=== PATIENT | female | born 1955 | race Caucasian/White ===

== ENCOUNTER 2021-03-03 04:58 | Emergency (ER) | payer MEDICARE, MEDICAID ==
[~2021-03-03] VITALS: Ht 172.7 cm; Wt 57.0 kg
[~2021-03-03 04:58] MED LIST: ALBU8HFA PO; HYDR-4353 PO
[2021-03-03 05:08] VITALS: BP 185/107
[2021-03-03] MEDS ORDERED: PENI500T2 PO (05:40)
== END 2021-03-03 05:59 | disposition home or self-care (01) ==
LOC: ER 04:59
DX: K04.7 Periapical abscess without sinus (principal); S03 Dislocation and sprain of joints and ligaments of head; G89.29 Other chronic pain; Z79.2 Long term (current) use of antibiotics; Z79.899 Other long term (current) drug therapy; Z98.890 Other specified postprocedural states; Z87.81 Personal history of (healed) traumatic fracture; X58.XXXD Exposure to other specified factors, subsequent encounter
CPT/HCPCS: 99283

== ENCOUNTER 2023-08-25 10:02 | Inpatient (IN) | payer MEDICARE, MEDICAID ==
[~2023-08-25] VITALS: Ht 172.7 cm; Wt 80.9 kg
[2023-08-25] MEDS ORDERED: morphine 4 MG/ML inj SYRINge IV PRN (10:40)
[2023-08-25 11:33] LABS: BASOPHILS % (AUTO) 0.3 % (0-1); EOSINOPHILS % (AUTO) 0.1 % (0-6); HEMATOCRIT 40.2 % (35.0-45.0); HEMOGLOBIN 13.6 g/dl (12.0-16.0); LYMPHOCYTES # (AUTO) 1.1 X10'3 (1.1-4.8); LYMPHOCYTES % (AUTO) 13.1 % (21-51); MEAN CORPUSCULAR HEMOGLOBIN 32.1 PG (27.0-31.0); MEAN CORPUSCULAR HGB CONC 33.8 g/dL (33.0-36.5); MEAN PLATELET VOLUME 8.9 FL (7.4-10.4); MONOCYTES # (AUTO) 0.7 X10'3 (0-0.9); MONOCYTES % (AUTO) 8.3 % (2-12); NEUTROPHILS # (AUTO) 6.7 X10'3 (1.8-7.7); NEUTROPHILS % (AUTO) 78.2 % (42-75); PLATELET COUNT 199 X10'3 (140-440); RED BLOOD COUNT 4.23 X10'6 (4.20-5.60); RED CELL DISTRIBUTION WIDTH 13.6 % (11.5-14.5); WHITE BLOOD COUNT 8.6 X10'3 (4.5-11.0)
[2023-08-25 11:46] LABS: PROTHROMBIN TIME 10.3 SECONDS (9.0-12.0)
[2023-08-25 11:48] LABS: ALANINE AMINOTRANSFERASE 25 U/L (12-78); ALBUMIN/GLOBULIN RATIO 1.1 (1.1-1.5); ALKALINE PHOSPHATASE 61 IU/L (46-116); ANION GAP 11 (8-16); ASPARTATE AMINO TRANSFERASE 17 U/L (10-37); BILIRUBIN,TOTAL 0.5 MG/DL (0.1-1.0); BLOOD UREA NITROGEN 18 MG/DL (7-18); BUN/CREATININE RATIO 22.2 (10.0-20.0); CALCIUM 9.3 MG/DL (8.5-10.1); CHLORIDE 103 MMOL/L (99-107); CREATININE 0.81 MG/DL (0.40-0.90); GLUCOSE 120 MG/DL (70-104); POTASSIUM 3.8 MMOL/L (3.5-5.1); SODIUM 137 MMOL/L (135-145); TOTAL CARBON DIOXIDE 23.4 MMOL/L (24-32); TOTAL PROTEIN 7.8 G/DL (6.4-8.2); eCRCL 61 ML/MIN; eGFR 71 ML/MIN
[2023-08-25] MEDS ORDERED: magnesium 2GM in 50ml NS 50 ML IV PRN (12:45)
[2023-08-25] MEDS ORDERED: magnesium 4gm in 100ml NS 100 ML IV PRN (12:45)
[2023-08-25] MEDS ORDERED: morphine 2 MG/ML inj. syringe IV PRN (12:45)
[2023-08-25] MEDS ORDERED: acetaminophen 325mg tablet PO PRN ×2 (12:45)
[2023-08-25] MEDS ORDERED: potassium Cl 20 mEq SR tablet PO PRN ×2 (12:45)
[2023-08-25] MEDS ORDERED: ondansetron/PF 4mg/2ml inj IV PRN (12:45)
[2023-08-25] MEDS ORDERED: magnesium Cl slow-release 64mg tablet PO PRN (12:45)
[2023-08-25] MEDS ORDERED: HYDROcodone/acetaminophen 5mg/325mg tablet PO PRN (12:45)
[2023-08-25] MEDS ORDERED: potassium Cl 40MEQ/1/2NS 520ml 520 ML IV PRN (12:45)
[2023-08-25 13:13] LABS: BILIRUBIN,URINE NEGATIVE (Neg); CLARITY,URINE CLEAR (Clear); COLOR,URINE YELLOW (Yellow); GLUCOSE, URINE NEGATIVE (Neg); KETONES,URINE 15 mg/dl (Neg); LEUKOCYTE ESTERASE ,URINE NEGATIVE (Neg); NITRITES, URINE NEGATIVE (Neg); OCCULT BLOOD,URINE NEGATIVE (Neg); PH,URINE 5.5 (4.8-8.0); PROTEIN,URINE TRACE mg/dl (Neg); UROBILINOGEN,URINE 0.2 E.U/dL (0.2-1.0)
[2023-08-25 13:19] LABS: UA COLLECTION TYPE FOLEY CATH
[2023-08-25] MEDS: normal saline 1000ml 1,000 ML IV SCH (13:22)
[2023-08-25 13:24] LABS: MUCUS STRANDS MANY /LPF (Neg)
[2023-08-25 13:25] LABS: HYALINE CASTS 0-3 /LPF (NEGATIVE); SQUAMOUS EPITHELIAL CELL,UR FEW /LPF (FEW)
[2023-08-25 13:26] LABS: BACTERIA,URINE FEW /HPF (Neg)
[2023-08-25 13:27] LABS: RENAL CELLS, URINE FEW /HPF; TRANSITIONAL EPI CELLS,URINE FEW /HPF; WBC,URINE 0-4 /HPF (0-4)
[2023-08-25] MEDS: heparin, porcine 5000 units/ml vial SQ SCH (16:00)
[2023-08-25] MEDS: HYDROcodone/acetaminophen 10/325mg tab PO PRN (20:13)
[2023-08-25 20:42] VITALS: BP 125/71; PULSE 77; RESP 20; TEMP 97.9; O2SAT 96
--- NOTE | 2023-08-25 20:50 | NUR ---
discussed with patient long -term vegetative state. pt does NOT wish to be kept alive on machines. has not discussed with family but expressed wishes with staff. ana maría PANIAGUA witness. Addendum: 08/25/23 at 2054 by Eboni JAUREGUI Amended: Links added.
[2023-08-25] MEDS ORDERED: temazepam 15mg capsule PO PRN (21:00)
--- NOTE | 2023-08-25 21:02 | NUR ---
assessment and orders done with ana maría PANIAGUA present.
[2023-08-25 21:42] VITALS: RESP 16; O2SAT 96
--- NOTE | 2023-08-25 23:10 | NUR ---
Charting by Eboni MELENDEZ reviewed by Abisai Mcdonnell RN
[2023-08-26] VITALS (22 sets, daily range): BP systolic 108–175; BP diastolic 56–82; PULSE 68–95; RESP 14–20; TEMP 97.2–97.9; O2SAT 94–100
[2023-08-26] MEDS: heparin, porcine 5000 units/ml vial SQ SCH ×4 (00:29→23:22)
[2023-08-26] MEDS: HYDROcodone/acetaminophen 10/325mg tab PO PRN ×2 (00:32→07:37)
[2023-08-26] MEDS: normal saline 1000ml 1,000 ML IV SCH ×3 (01:30→19:24)
[2023-08-26] MEDS: morphine 2 MG/ML inj. syringe IV PRN ×4 (05:50→23:28)
--- NOTE | 2023-08-26 06:16 | NUR ---
pre op bath performed after pt given morphine. removed bra and all other clothes. dr. antonio came in to see patient. still not on surgery schedule.
[2023-08-26 07:41] LABS: BASOPHILS % (AUTO) 0.6 % (0-1); EOSINOPHILS # (AUTO) 0.1 X10'3 (0-0.9); HEMATOCRIT 38.5 % (35.0-45.0); LYMPHOCYTES # (AUTO) 2.5 X10'3 (1.1-4.8); LYMPHOCYTES % (AUTO) 35.1 % (21-51); MEAN CORPUSCULAR HEMOGLOBIN 32.3 PG (27.0-31.0); MEAN CORPUSCULAR HGB CONC 33.9 g/dL (33.0-36.5); MEAN CORPUSCULAR VOLUME 95.2 FL (78-98); MEAN PLATELET VOLUME 9.4 FL (7.4-10.4); MONOCYTES # (AUTO) 0.8 X10'3 (0-0.9); MONOCYTES % (AUTO) 11.4 % (2-12); NEUTROPHILS # (AUTO) 3.6 X10'3 (1.8-7.7); NEUTROPHILS % (AUTO) 50.9 % (42-75); PLATELET COUNT 177 X10'3 (140-440); RED BLOOD COUNT 4.04 X10'6 (4.20-5.60); WHITE BLOOD COUNT 7.1 X10'3 (4.5-11.0)
[2023-08-26 07:55] LABS: ALANINE AMINOTRANSFERASE 16 U/L (12-78); ALBUMIN 3.3 G/DL (3.4-5.0); ALKALINE PHOSPHATASE 58 IU/L (46-116); ANION GAP 8 (8-16); ASPARTATE AMINO TRANSFERASE 18 U/L (10-37); BILIRUBIN,TOTAL 0.4 MG/DL (0.1-1.0); BLOOD UREA NITROGEN 14 MG/DL (7-18); BUN/CREATININE RATIO 19.2 (10.0-20.0); CALCIUM 8.5 MG/DL (8.5-10.1); CHLORIDE 105 MMOL/L (99-107); CREATININE 0.73 MG/DL (0.40-0.90); GLUCOSE 98 MG/DL (70-104); SODIUM 140 MMOL/L (135-145); TOTAL CARBON DIOXIDE 26.6 MMOL/L (24-32); TOTAL PROTEIN 6.7 G/DL (6.4-8.2); eCRCL 68 ML/MIN; eGFR 80 ML/MIN
[2023-08-26] MEDS ORDERED: BUPIVACAINE liposomal/PF 13.3 MG/ML vial IM ONE (15:12)
[2023-08-26] MEDS ORDERED: BUPIVAcaine 2.5mg/ml inj 50ml vial (contains preservative) ONE (15:12)
[2023-08-26] MEDS ORDERED: LIDOcaine 1% (10mg/ml)w/preservative inj. 20ml MDV ONE (15:15)
--- NOTE | 2023-08-26 16:43 | NUR ---
Pt transferred to OR via bed. Report given to OR nurse.
[2023-08-26] MEDS ORDERED: morphine 4 MG/ML inj SYRINge IV PRN (16:50)
[2023-08-26] MEDS ORDERED: proCHLORperazine 10 MG/2 ml inj IV PRN (16:50)
[2023-08-26] MEDS ORDERED: hydrALAZINE 20mg/ml inj. IV PRN (16:50)
[2023-08-26] MEDS ORDERED: labetalol 20mg/4ml (5mg/ml) syringe IV PRN (16:50)
[2023-08-26] MEDS ORDERED: ringers solution, lacted 1,000 ML IV SCH (16:50)
[2023-08-26] MEDS ORDERED: morphine 2 MG/ML inj. syringe IV PRN (16:50)
[2023-08-26] MEDS ORDERED: acetaminophen 1,000mg/100ml IV 100 ML IV ONE (16:50)
[2023-08-26] MEDS ORDERED: meperidine/PF 25mg/ml syringe IV PRN ×3 (16:50)
[2023-08-26] MEDS ORDERED: ondansetron/PF 4mg/2ml inj IV PRN (16:50)
[2023-08-26] MEDS ORDERED: ketorolac tromethamine 15mg/ml inj. IV ONE (16:50)
[2023-08-26] MEDS ORDERED: sevoflurane 250ml liquid IH ONE (16:52)
[2023-08-26] MEDS ORDERED: fentaNYL/PF 50MCG/1 ML 2ML syringe ONE (17:00)
[2023-08-26] MEDS ORDERED: midazolam 1 mg/ML 2ml injection ONE (17:11)
[2023-08-26] MEDS ORDERED: LIDOcaine 2% (20mg/ml) 5ml vial ONE (17:12)
[2023-08-26] MEDS ORDERED: propofol inj 20 ML IV ONE (17:12)
[2023-08-26] MEDS ORDERED: ceFAZolin 1000mg inj ONE ×2 (17:12)
[2023-08-26] MEDS ORDERED: BUPIVAcaine 0.25% w/Epi /PF 30ml vial IJ ONE (17:20)
[2023-08-26] MEDS ORDERED: BUPIVAcaine/PF 2.5mg/ml (0.25%) 10ml vial ONE (17:23)
[2023-08-26] MEDS ORDERED: ondansetron/PF 4mg/2ml inj ONE (17:32)
[2023-08-26] MEDS ORDERED: dexamethasone sod phosphate 4mg/ml inj. ONE (17:32)
[2023-08-26] MEDS ORDERED: 0.9 % SODIUM CHLORIDE 10 ML VIAL ONE (17:35)
[2023-08-26] MEDS ORDERED: ePHEDrine 50MG/ML INJ. ONE (17:35)
--- NOTE | 2023-08-26 17:42 | NUR ---
Received from OR via ORTHO BED WITH NJKARINA , accompanied by Anesthesiologist RYAN and report given by Anesthesiolgist. PATIENT WITH 20G PIV IN RIGHT UE RUNNING LR AT 100. PATIENT WITH VEGA CATHTETER IN PLACE AND HAS CLEAR YELLOW URINE PRESENT. PATIENT WITH LEFT HIP BANDAID IN PLACE AND A + DP TO THE LEFT FOOT. VSS. WILL CONTINUE TO ASSESS AND TREAT FOR PAIN NEEDED. TEETH AND CHART ARE NOT WITH PATIENT. Addendum: 08/26/23 at 1750 by Magan Franks RN, RN Amended: Links added.
--- NOTE | 2023-08-26 18:10 | NUR ---
Patient in room ORTHO 4014. I have received report from ARCELIA Castrejon and had the opportunity to ask questions and assume patient care.
--- NOTE | 2023-08-26 18:57 | NUR ---
ALL CRITERIA FOR TRANSFER BACK TO PATIENT ROOM HAS BEEN MET. VSS. PAIN AT A TOLERABLE LEVEL AND DRESSINGS SAME UPON ARRIVAL. REPORT GIVEN AND ALL QUESTIONS ANSWERED. RN PRESENT OR AWARE THAT PATIENT HAS ARRIVED. BED LOW. CALL LIGHT PRESENT. 2 RAILS UP. CARE TURNED OVER TO RN FOLLOWING REPORT. BELONGINGS ALREADY IN PATIENT ROOM DENTURE X1 UPPER IN HER MOUTH. Addendum: 08/26/23 at 1858 by Magan Sibley - ARCELIA RN Amended: Links added.
[2023-08-27] MEDS: ceFAZolin/D5W- 1GM premix 50 ML IV SCH ×2 (00:54→08:42)
[2023-08-27] MEDS ORDERED: VANCOmycin 1250MG/NS 250ml Bag 250 ML IV ONE (01:00)
[2023-08-27 02:04] VITALS: BP 138/76; PULSE 72; RESP 16; TEMP 98.1; O2SAT 97
[2023-08-27] MEDS: HYDROcodone/acetaminophen 10/325mg tab PO PRN (05:32)
[2023-08-27 06:00] VITALS: BP 128/81; PULSE 83; RESP 17; TEMP 97.5; O2SAT 97
[2023-08-27 06:30] LABS: BASOPHILS % (AUTO) 0.1 % (0-1); EOSINOPHILS % (AUTO) 0 % (0-6); HEMATOCRIT 36.7 % (35.0-45.0); HEMOGLOBIN 12.5 g/dl (12.0-16.0); LYMPHOCYTES % (AUTO) 14.4 % (21-51); MEAN CORPUSCULAR HEMOGLOBIN 32.2 PG (27.0-31.0); MEAN CORPUSCULAR VOLUME 94.8 FL (78-98); MEAN PLATELET VOLUME 9.1 FL (7.4-10.4); MONOCYTES # (AUTO) 0.5 X10'3 (0-0.9); MONOCYTES % (AUTO) 6.8 % (2-12); NEUTROPHILS # (AUTO) 5.3 X10'3 (1.8-7.7); NEUTROPHILS % (AUTO) 78.7 % (42-75); PLATELET COUNT 185 X10'3 (140-440); RED BLOOD COUNT 3.87 X10'6 (4.20-5.60); RED CELL DISTRIBUTION WIDTH 13.7 % (11.5-14.5); WHITE BLOOD COUNT 6.7 X10'3 (4.5-11.0)
--- NOTE | 2023-08-27 06:38 | NUR ---
Problems reprioritized. Patient report given, questions answered & plan of care reviewed with ARCELIA Borjas.
--- NOTE | 2023-08-27 06:38 | NUR ---
Patient in room ORTHO 4014. I have received report from GODFREY PANIAGUA and had the opportunity to ask questions and assume patient care.
[2023-08-27 06:43] LABS: ALANINE AMINOTRANSFERASE 20 U/L (12-78); ALBUMIN 3.1 G/DL (3.4-5.0); ALBUMIN/GLOBULIN RATIO 0.9 (1.1-1.5); ALKALINE PHOSPHATASE 56 IU/L (46-116); ANION GAP 7 (8-16); ASPARTATE AMINO TRANSFERASE 23 U/L (10-37); BILIRUBIN,TOTAL 0.2 MG/DL (0.1-1.0); BLOOD UREA NITROGEN 12 MG/DL (7-18); BUN/CREATININE RATIO 15.4 (10.0-20.0); CALCIUM 8.8 MG/DL (8.5-10.1); CHLORIDE 104 MMOL/L (99-107); CREATININE 0.78 MG/DL (0.40-0.90); GLUCOSE 167 MG/DL (70-104); POTASSIUM 4.4 MMOL/L (3.5-5.1); SODIUM 137 MMOL/L (135-145); TOTAL CARBON DIOXIDE 26.4 MMOL/L (24-32); TOTAL PROTEIN 6.6 G/DL (6.4-8.2); eCRCL 71 ML/MIN; eGFR 74 ML/MIN
[2023-08-27] MEDS: heparin, porcine 5000 units/ml vial SQ SCH (08:00)
[2023-08-27 10:00] VITALS: BP 125/84; PULSE 74; RESP 16; TEMP 98.4; O2SAT 98
--- NOTE | 2023-08-27 10:05 | NUR ---
TALKED TO DR HANLEY, PT IV WAS LEAKING PT ANCEF WAS NOT FINISHED YET, I ASKED IF SHE NEEDED A NEW ONE FOR THIS TO FINISH. MD HANLEY STATED NO SHE CAN GO HOME. HOSPITALIST STATED SHE CAN GO HOME WELL. WAITING ON DC PAPERWORK.
[2023-08-27] MEDS ORDERED: ASPI-1265 PO (10:17)
[2023-08-27] MEDS ORDERED: HYDR-3972 PO (10:17)
--- NOTE | 2023-08-27 13:37 | NUR ---
pt is stable for dc, all dc info gone over and signed, no meds in pharmacy, all belongings taken, iv dc cannula intact, dressing was dry and intact, pt was wheeled down to the lobby by PCT and left in a private vehicle with friend.
== END 2023-08-27 12:50 | disposition home or self-care (01) | DRG 482 ==
LOC: ER 10:03 → ED HOLD 12:44 → ORTHO 4S 20:24
PROVIDERS: ADMIT Internal Medicine; ATTEND Internal Medicine
PROC: 0QS734Z Reposition Left Upper Femur with Internal Fixation Device, Percutaneous Approach (ICD-10-PCS; principal; 2023-08-26 16:52)
DX: S72.002A Fracture of unspecified part of neck of left femur, initial encounter for closed fracture (principal); G89.29 Other chronic pain; M54.50 Low back pain, unspecified; F17.210 Nicotine dependence, cigarettes, uncomplicated; W18.39XA Other fall on same level, initial encounter; Y93.89 Activity, other specified; Y92.89 Other specified places as the place of occurrence of the external cause; Y99.8 Other external cause status
CPT/HCPCS: 36415; 71045; 73502; 76000; 80053; 81001; 82948; 85025; 85610; 86885; 86900; 86901; 87081; 96374; 97116; 97161; 97530; 99285; A4314; A4618; A6258; A7000; C1713; C9290; G0378; J0131; J0690; J1100; J1644; J1885; J2175; J2250; J2270; J2405; J2704; J3010; J3370; J3490; J7030; J7120; S0020

== ENCOUNTER 2024-05-23 12:23 | Emergency (ER) | payer MEDICARE, MEDICAID ==
[~2024-05-23] VITALS: Ht 172.7 cm; Wt 56.2 kg
[~2024-05-23 12:23] MED LIST changes: -ALBU8HFA PO; +ASPI-1265 PO; +HYDR-3972 PO; -HYDR-4353 PO
[2024-05-23 12:49] VITALS: BP 141/80; PULSE 81; O2SAT 97
[2024-05-23] MEDS ORDERED: KETO120S5 TP (13:26)
[2024-05-23] MEDS ORDERED: TERB250T89 PO (13:26)
[2024-05-23 13:51] VITALS: RESP 16; TEMP 97.7
== END 2024-05-23 13:53 | disposition home or self-care (01) ==
LOC: ER 12:24
DX: L65.8 Other specified nonscarring hair loss (principal); G89.29 Other chronic pain; M54.9 Dorsalgia, unspecified; Z79.82 Long term (current) use of aspirin; Z98.890 Other specified postprocedural states
CPT/HCPCS: 99283